=== PATIENT | female | born 1935 | race Caucasian/White ===

== ENCOUNTER 2023-08-16 11:15 | Emergency (ER) | payer OTHER ==
[~2023-08-16] VITALS: Ht 157.5 cm; Wt 55.3 kg
[2023-08-16 11:42] VITALS: BP_SYST 156; PULSE 72; RESP 16; O2SAT 97
[2023-08-16 11:56] LABS: BASOPHILS % (AUTO) 0.5 % (0.0-2.0); EOSINOPHILS # (AUTO) 0.2 K/uL (0.0-0.4); EOSINOPHILS % (AUTO) 2.2 % (0.0-4.0); HEMATOCRIT 35.5 % (36-48); HEMOGLOBIN 12.5 g/dL (12.0-16.0); LYMPHOCYTES # (AUTO) 1.7 K/uL (1.0-5.5); LYMPHOCYTES % (AUTO) 23.3 % (20.5-51.5); MEAN CORPUSCULAR HEMOGLOBIN 32 pg (27-31); MEAN CORPUSCULAR HGB CONC 35 % (32-36); MEAN CORPUSCULAR VOLUME 91 fL (79.0-98.0); MONOCYTES # (AUTO) 0.5 K/uL (0.0-1.0); MONOCYTES % (AUTO) 7.1 % (1.7-9.3); NEUTROPHILS # (AUTO) 4.9 K/uL (1.8-7.7); NEUTROPHILS % (AUTO) 66.9 % (40.0-70.0); PLATELET COUNT (AUTO) 313 K/uL (130-430); RED BLOOD CELL COUNT(AUTO) 3.91 MIL/uL (4.2-6.2); RED CELL DISTRIBUTION WIDTH 13.2 % (9.0-15.0); WHITE BLOOD COUNT (AUTO) 7.2 K/uL (4.8-10.8)
[2023-08-16 12:17] LABS: ANION GAP 10 (5-15); CALCIUM 8.9 mg/dL (8.4-11.0); CARBON DIOXIDE 25 mmol/L (23-29); CHLORIDE 101 mmol/L (98-107); CREATININE 0.77 mg/dL (0.55-1.30); GLUCOSE 83 mg/dL (74-106); SODIUM SERUM 136 mmol/L (136-145); UREA NITROGEN, BLOOD 12 mg/dL (8-21)
[2023-08-16 12:24] LABS: ALANINE AMINOTRANSFERASE 24 U/L (12-78); ALBUMIN 3.8 g/dL (3.4-4.8); ASPARTATE AMINOTRANSFERASE 10 U/L (10-37); BILIRUBIN,DIRECT 0.1 mg/dL (0.0-0.3); TOTAL BILIRUBIN 0.5 mg/dL (0.0-1.0); TOTAL PROTEIN, SERUM 7.3 g/dL (6.4-8.3)
[2023-08-16 14:23] VITALS: BP_SYST 150; PULSE 97; RESP 18; TEMP 98.2; O2SAT 98
== END 2023-08-16 14:27 | disposition home or self-care (01) ==
LOC: SED 11:15
DX: Z00.00 Encounter for general adult medical examination without abnormal findings (principal); E78.5 Hyperlipidemia, unspecified; Z79.899 Other long term (current) drug therapy
CPT/HCPCS: 36415; 71045; 80048; 80076; 84484; 85025; 93005; 99285

== ENCOUNTER 2024-01-03 10:53 | Emergency (ER) | payer OTHER ==
[~2024-01-03] VITALS: Ht 157.5 cm; Wt 54.0 kg
[2024-01-03 10:53] VITALS: BP_SYST 162; PULSE 68; RESP 18; TEMP 98; O2SAT 98
[2024-01-03 11:35] LABS: BASOPHILS % (AUTO) 0.7 % (0.0-2.0); EOSINOPHILS # (AUTO) 0.1 K/uL (0.0-0.4); EOSINOPHILS % (AUTO) 1.8 % (0.0-4.0); HEMOGLOBIN 11.8 g/dL (12.0-16.0); LYMPHOCYTES # (AUTO) 1.5 K/uL (1.0-5.5); LYMPHOCYTES % (AUTO) 25.4 % (20.5-51.5); MEAN CORPUSCULAR HEMOGLOBIN 32 pg (27-31); MEAN CORPUSCULAR HGB CONC 34 % (32-36); MEAN CORPUSCULAR VOLUME 94 fL (79.0-98.0); MONOCYTES # (AUTO) 0.4 K/uL (0.0-1.0); MONOCYTES % (AUTO) 7.6 % (1.7-9.3); NEUTROPHILS # (AUTO) 3.8 K/uL (1.8-7.7); NEUTROPHILS % (AUTO) 64.5 % (40.0-70.0); PLATELET COUNT (AUTO) 303 K/uL (130-430); RED BLOOD CELL COUNT(AUTO) 3.72 MIL/uL (4.2-6.2); RED CELL DISTRIBUTION WIDTH 13.3 % (9.0-15.0); WHITE BLOOD COUNT (AUTO) 5.8 K/uL (4.8-10.8)
[2024-01-03 11:52] LABS: ANION GAP 7 (5-15); CALCIUM 9.2 mg/dL (8.4-11.0); CARBON DIOXIDE 27 mmol/L (23-29); CHLORIDE 101 mmol/L (98-107); CREATININE 0.74 mg/dL (0.55-1.30); GLUCOSE 88 mg/dL (74-106); POTASSIUM 3.8 mmol/L (3.5-5.1); SODIUM SERUM 135 mmol/L (136-145); UREA NITROGEN, BLOOD 11 mg/dL (8-21)
[2024-01-03 13:04] VITALS: BP_SYST 162; PULSE 68; RESP 18; TEMP 98; O2SAT 98
== END 2024-01-03 13:04 | disposition home or self-care (01) ==
LOC: SED 10:53
DX: Z00.8 Encounter for other general examination (principal); E78.5 Hyperlipidemia, unspecified; Z79.899 Other long term (current) drug therapy
CPT/HCPCS: 36415; 80048; 84484; 85025; 93005; 99284

== ENCOUNTER 2024-01-19 07:13 | Day surgery (SDC) | payer OTHER ==
[~2024-01-19] VITALS: Ht 157.5 cm; Wt 53.2 kg
[~2024-01-19 07:13] MED LIST: CEFAZOLIN SOD 2 GM in D5W 50 ML IV ONE
[2024-01-19] MEDS ORDERED: CELECOXIB 100 MG CAPSULE ONE (07:47)
[2024-01-19] MEDS ORDERED: ACETAMINOPHEN 500 MG TABLET ONE (07:47)
[2024-01-19] MEDS ORDERED: SCOPOLAMINE HYDROBROMIDE 1 MG PATCH .72 H (TRANSDERM-SCOP) TD ONE (07:48)
[2024-01-19] MEDS ORDERED: GABAPENTIN 300 MG CAPSULE ONE (07:48)
[2024-01-19] MEDS ORDERED: oxyCODONE HCL 10 MG TAB.ER.12H PO ONE (07:48)
[2024-01-19] MEDS: SCOPOLAMINE HYDROBROMIDE 1 MG PATCH .72 H (TRANSDERM-SCOP) TD ONE (08:18)
[2024-01-19] MEDS: ACETAMINOPHEN 500 MG TABLET PO ONE (08:18)
[2024-01-19] MEDS: CELECOXIB 100 MG CAPSULE PO ONE (08:18)
[2024-01-19] MEDS: GABAPENTIN 300 MG CAPSULE PO ONE (08:18)
[2024-01-19] MEDS ORDERED: METOCLOPRAMIDE HCL 10 MG/2 ML VIAL IVP PRN ×2 (09:30→11:15)
[2024-01-19] MEDS ORDERED: BUPIVACAINE /DEX PF 0.75% SPINAL 2 ML AMP INJ ONE (09:30)
[2024-01-19] MEDS ORDERED: NS IRRIG SOLN 1000 ML IR ONE (09:30)
[2024-01-19] MEDS ORDERED: NS IRRIG SOLN 5000 ML IR ONE (09:30)
[2024-01-19] MEDS ORDERED: METOCLOPRAMIDE HCL 10 MG/2 ML VIAL ONE (09:30)
[2024-01-19] MEDS ORDERED: LR 1,000 ML IV.SOLN IV ONE (09:30)
[2024-01-19] MEDS ORDERED: TRANEXAMIC ACID 1,000 MG/10 ML VIAL ONE (09:30)
[2024-01-19] MEDS ORDERED: ONDANSETRON HCL 4 MG/2 ML VIAL ONE (09:30)
[2024-01-19] MEDS ORDERED: VANCOMYCIN HCL 1000 MG/VIAL IV ONE (09:30)
[2024-01-19] MEDS ORDERED: BISACODYL 10 MG/SUPPOSITORY RC PRN (09:30)
[2024-01-19] MEDS ORDERED: LACTULOSE 20 GM/30 ML UDC PO PRN (09:30)
[2024-01-19] MEDS ORDERED: BUPIVACAINE /EPINEPHRINE/PF 0.25% 30 ML VIAL ONE (09:30)
[2024-01-19] MEDS ORDERED: WATER FOR IRRIGATION,STERILE 1,000 ML IRRIG.SOLN IR ONE (09:30)
[2024-01-19] MEDS ORDERED: DIPHENHYDRAMINE HCL 25 MG CAPSULE PO PRN (09:30)
[2024-01-19] MEDS: oxyCODONE HCL 10 MG TAB.ER.12H PO ONE (09:35)
[2024-01-19] MEDS ORDERED: MIDAZOLAM HCL 2 MG/2 ML VIAL (VERSED) ONE (09:52)
[2024-01-19] MEDS ORDERED: LORATADINE 10 MG TABLET PO PRN (11:00)
[2024-01-19] MEDS ORDERED: HYDROmorphone 1 MG/ML INJ. CARTRIDGE IVP PRN ×6 (11:00→11:15)
[2024-01-19] MEDS ORDERED: oxyCODONE HCL 5 MG TABLET PO PRN ×2 (11:00)
[2024-01-19] MEDS ORDERED: traMADol HCL HCL 50 MG TABLET (ULTRAM) PO PRN (11:00)
[2024-01-19] MEDS ORDERED: ePHEDrine sulfate 50 MG/ML VIAL IVP PRN (11:15)
[2024-01-19] MEDS ORDERED: LABETALOL 100 MG/ 20ML VIAL IVP PRN (11:15)
[2024-01-19] MEDS ORDERED: ceFAZolin SODIUM 2 GM in D5W 50 ML IV SCH (11:15)
[2024-01-19] MEDS ORDERED: ONDANSETRON HCL 4 MG/2 ML VIAL IVP PRN ×2 (11:15→11:45)
[2024-01-19 12:01] VITALS: BP_SYST 148; PULSE 69; RESP 18; TEMP 98.9; O2SAT 99
[2024-01-19] MEDS: TAMSULOSIN HCL 0.4 MG CAP PO ONE (12:56)
[2024-01-19] MEDS ORDERED: KETOROLAC TROMETHAMINE 10 MG TABLET (TORADOL) PO SCH (14:00)
[2024-01-19] MEDS ORDERED: ACETAMINOPHEN 500 MG TABLET PO SCH (14:00)
[2024-01-19] MEDS ORDERED: SENNOSIDES/DOCUSATE SODIUM 1 TAB TABLET(SENOKOT-S) PO SCH (21:00)
[2024-01-20] MEDS ORDERED: TAMSULOSIN HCL 0.4 MG CAP PO SCH (09:00)
[2024-01-20] MEDS ORDERED: ASPIRIN 81 MG TAB.CHEW PO SCH (09:00)
[2024-01-20] MEDS ORDERED: CELECOXIB 200 MG CAPSULE PO SCH (11:00)
== END 2024-01-19 15:40 | disposition home or self-care (01) ==
LOC: SDS 07:13 → SMU 07:14 → SDS 15:40
PROVIDERS: ATTEND Student in an Organized Health Care Education/Training Program
DX: M17.11 Unilateral primary osteoarthritis, right knee (principal); M25.761 Osteophyte, right knee; M25.561 Pain in right knee; I10 Essential (primary) hypertension; Z98.890 Other specified postprocedural states; Z79.899 Other long term (current) drug therapy; Z80.1 Family history of malignant neoplasm of trachea, bronchus and lung
CPT/HCPCS: 87081; 27447; 97162; 64447; 73560; 97110; 97530; 97116; 88305; 88311; J3490 ×3; J0690; J0696; J2765; J3465; J2405; J3370; J7060 ×2; J7120; C1776 ×3; C1713 ×2